=== PATIENT | male | born 1980 | race Caucasian/White ===

== ENCOUNTER 2018-03-03 13:08 | Emergency (ER) | payer SELFPAY ==
[~2018-03-03] VITALS: Ht 170.2 cm; Wt 75.0 kg
[2018-03-03] MEDS ORDERED: KETOROLAC 30MG/ML VIAL IV STA (14:29)
[2018-03-03] MEDS ORDERED: SODIUM CHLORIDE 0.9% 1,000 ML IV ONE (14:29)
[2018-03-03 15:14] LABS: BASOPHILS % 0.4 % (0.0-2.0); EOSINOPHILS % 1.8 % (0.0-5.0); HEMATOCRIT. 41.9 % (42.0-52.0); HEMOGLOBIN. 14.7 g/dL (14.0-18.0); LYMPHOCYTES % 27.7 % (20.0-50.0); MEAN CORPUSCULAR HEMOGLOBIN 30.9 pg (28.0-32.0); MEAN CORPUSCULAR VOLUME 88.1 fL (80.0-94.0); MEAN PLATELET VOLUME 8.6 fl (7.4-10.4); MONOCYTES % 6.9 % (2.0-8.0); NEUTROPHILS % 63.2 % (40.0-76.0); PLATELET 214 x1000/uL (130-400); RED BLOOD CELL COUNT 4.76 mill/uL (4.7-6.1); RED CELL DISTRIBUTION WIDTH 13.4 % (11.6-14.6)
[2018-03-03 15:19] LABS: CHLORIDE 106 mEq/L (98-107)
[2018-03-03 15:34] LABS: PROTHROMBIN TIME 10.6 sec (9.4-11.6)
[2018-03-03 16:20] VITALS: BP 112/74
== END 2018-03-03 16:59 | disposition home or self-care (01) ==
LOC: ER 14:03
DX: R07.89 Other chest pain (principal)
CPT/HCPCS: 36415; 71045; 80053; 83690; 84484; 85025; 85610; 93005; 96361; 96374; 99285; J1885; J7030; Z7610